=== PATIENT | female | born 1965 | race Caucasian/White ===

== ENCOUNTER 2021-01-19 13:52 | Observation (INO) | payer OTHER ==
[~2021-01-19] VITALS: Ht 157.5 cm; Wt 113.9 kg
[~2021-01-19 13:52] MED LIST: HYDROCODON-ACET15 ML PO
[2021-01-19 14:21] LABS: HEMATOCRIT 41.7 % (37.0-47.0); HEMOGLOBIN 13.8 gm/dL (12.0-15.0); MCH 29.4 pg (26.0-34.0); MCV 89.1 fL (80.0-100.0); RBC 4.68 mil/uL (4.20-5.00); RDW 14.1 % (10.5-14.5); WBC 7.3 thou/uL (4.0-11.0)
[2021-01-19] MEDS ORDERED: LEVO-T25 MCG PO (14:25)
[2021-01-19] MEDS ORDERED: DILTIAZEM ER180 M2 PO (14:30)
[2021-01-19 14:31] LABS: ANION GAP 10 mmol/L (7-16); BUN 16 mg/dL (7-18); CALCIUM 9.3 mg/dL (8.5-10.1); CHLORIDE 102 mmol/L (98-107); CO2 28 mmol/L (21-32); CREATININE 0.9 mg/dL (0.6-1.0); GLUCOSE 97 mg/dL (74-106); POTASSIUM 3.7 mmol/L (3.5-5.1); SODIUM 140 mmol/L (136-145)
[2021-01-19] MEDS ORDERED: METFORMIN HCL500 M3 PO (14:31)
[2021-01-19] MEDS ORDERED: ROSUVASTATIN CA10 MG PO (14:33)
[2021-01-19] MEDS ORDERED: DULOXETINE HCL20 MG PO (14:33)
[2021-01-19 14:39] LABS: TROPONIN-I <0.06 ng/mL (<0.06)
--- NOTE | 2021-01-19 16:54 | CATHLAB ---
[facility] [place] [address] INVASIVE PROCEDURE REPORT Name: DONALD FONTENOT Room #: REG [facility]#: [id number] Admission: 01/19/21 Attend Phys: Kirk Swan MD Discharge: Date of : 69 Report #: [id number] THIS REPORT FOR: cc: Stuart Robbins Alan Z. DO Park, Jin S. MD ~ APPROVED REPORT Study performed: 01/19/2021 15:05:02 Patient Details Patient Status: Out-Patient Room #: The patient is a 55 year-old female Event Personnel Kirk Swan Hand Flatwork Finisher, Mia Mak RN RN, Jeremias Hannon RTR Jarred Mckeon Sherra RTNadia Monitor Procedures Performed Art Access - R femoral artery* Left Heart Cath w/or w/o Coronaries [id number] [facility] [address] Initial Mod Sed Same Phys/QHP Gr 178195 48948 Mod Sed Same Phys/QHP Ea 189414 Hemostasis with Manual pressure Indication Dyspnea, Unstable angina , Chest pain Risk Factors Obesity, Hypercholesterolemia, Hypertension, Diabetes Procedure Narrative The Right Groin^ was infiltrated with 1% Lidocaine subcutaneous anesthesia. A PINNACLE 4FR Sheath #[id number] sheath was inserted into the RFA 1^. Coronary angiography was performed using coronary diagnostic catheters. The right coronary system was accessed and visualized with a JR4 catheter. The left coronary system was accessed and visualized with a JL4 catheter. The left ventricle was accessed and visualized with a PIGTAIL catheter. Left ventriculogram was performed in 30 degree projection. Hemostasis was obtained with manual pressure following sheath removal without any complications. The patient tolerated the procedure well and there were no complications associated with the procedure. There was no hematoma. [facility] [address] [address] INVASIVE PROCEDURE REPORT Name: DONALD FONTENOT Room #: REG [facility]#: [id number] Admission: 01/19/21 Attend Phys: Kirk Swan MD Discharge: Date of : 69 Report #: [id number] Intraoperative Conscious Sedation Sedation start time: 1554 Case end Time: 1624 Fentanyl 50 mcg Versed 1 mg Fluoro Time: 2.20 minutes Dose: DAP 6875.00 cGycm2 907 mGy Contrast Type and Amount: Omnipaque 65 ml Coronary Angiography The patient's coronary anatomy is right dominant. Diagnostic Cath Left Main The left main artery is a large-caliber vessel, patent with no flow-limiting lesions. LAD The LAD is a moderate-sized caliber vessel, traverses the anterior wall and terminates at the apex. This vessel appears angiographically normal. Diagonal 1 This is a small to moderate-sized caliber vessel, patent with no flow-limiting lesions. Diagonal 2 This is a small to moderate-sized caliber vessel, patent with no flow-limiting lesions. Circumflex The left circumflex artery supplies 1 OM vessel. OM1 This is a moderate-sized caliber vessel, patent with no flow-limiting lesions. Right Coronary The RCA is a dominant vessel, appears angiographically normal. R PDA This is a moderate-sized caliber vessel, patent with no flow-limiting lesions. RPLV This is a moderate-sized caliber vessel, patent with no flow-limiting lesions. Left Ventriculography The left ventricle is normal in size with normal contractility. The left ventricular ejection fraction is estimated to be 55-60%. Hemodynamics The aortic pressure is 149/86 mmHg with a mean of 109 mmHg. The left ventricular pressure is 155/12 mmHg with a mean of mmHg. The left ventricular end diastolic pressure is 23 mmHg. Conclusion 1. Angiographically normal coronary arteries. 2. Right dominant system. [facility] [address] [place] [address] INVASIVE PROCEDURE REPORT Name: DONALD FONTENOT Room #: REG [facility]#: [id number] Admission: 01/19/21 Attend Phys: Kirk Swan MD Discharge: Date of : 69 Report #: [id number] 3. Normal LV systolic function. 4. Recommend risk factor management. <ELECTRONICALLY SIGNED> By: Kirk Swan MD 01/19/21 1654 1654 1654 Kirk Swan MD /DEANGELO
[2021-01-19 17:55] VITALS: BP 131/93
--- NOTE | 2021-01-19 19:47 | NUR ---
ASSUMED CARE OF PT AT APPROX 1700 FROM RN PED[facility]ATR[facility]. BEDREST COMPLETE AT 1830. WALKED PT AROUND UNIT SEVERAL TIME, CHECKING GROIN SITE EACH TIME. GROIN SITE CDI, NO BRUISING OR HEMATOMA. WALKED PT WITH TO ER ENTRANCE TO THEIR CAR.
== END 2021-01-19 19:45 | disposition home or self-care (01) ==
LOC: CATH 13:52 → 2N 17:52
PROVIDERS: ADMIT Internal Medicine Cardiovascular Disease; ATTEND Internal Medicine Cardiovascular Disease
DX: I25.110 Atherosclerotic heart disease of native coronary artery with unstable angina pectoris (principal); I10 Essential (primary) hypertension; E11.9 Type 2 diabetes mellitus without complications; E78.00 Pure hypercholesterolemia, unspecified; Z79.899 Other long term (current) drug therapy